=== PATIENT | female | born 1955 | race Caucasian/White ===

== ENCOUNTER → 2019-01-04 | Day surgery (SDC) | payer MEDICARE ==
[2019-01-01 14:19] LABS: BASOPHILS # (AUTO) 0.1 (0.0-0.1); BASOPHILS % 0.7 % (0.0-1.0); EOSINOPHILS # (AUTO) 0.3 (0.0-0.4); EOSINOPHILS % 3.6 % (0.0-6.0); HEMATOCRIT 40.4 % (34.2-44.1); HEMOGLOBIN 12.4 g/dL (12.0-16.0); LYMPHOCYTES # (AUTO) 2.6 (1.0-3.2); LYMPHOCYTES % 30.1 % (18.0-39.1); MEAN CORPUSCULAR HEMOGLOBIN 28.3 pg (28-32); MEAN CORPUSCULAR HGB CONC 30.7 g/dL (31-35); MEAN CORPUSCULAR VOLUME 92.2 fL (81-99); MONOCYTES # (AUTO) 0.9 (0.2-0.8); NEUTROPHILS # (AUTO) 4.7 (2.1-6.9); NEUTROPHILS % 55.3 % (38.7-80.0); PLATELET COUNT 211 x10e3/uL (140-360); RED BLOOD COUNT 4.38 x10e6/uL (3.6-5.1); RED CELL DISTRIBUTION WIDTH 12.8 % (11.7-14.4)
[~2019-01-04] MED LIST: ATORVASTATIN CA10 MG PO; BREO; CYCLOBENZAPRINE5 MG PO; CYMBALTA30 MG PO; ESTRADIOL1 MG PO; FENTANYL CITRATE/PF 100MCG/2 ML INJ ONE; LIDOCAINE HCL 2% LOCAL INJ 5 ML SDV VIAL INJ ONE; LUNESTA3 MG PO; METOPROLOL SUCC25 MG PO; MIDAZOLAM HCL 2 MG/2 ML VIAL ONE; PLAQUENIL200 MG PO; PROPOFOL IV EMULSION 10 MG/ML 50 ML VIAL ONE; ULTRACET TABLE1 EACH PO; VENTOLIN HFA18 GM INH
--- OUTSIDE RECORDS SUMMARY | 2019-01-04 06:53 | XMS REPORT | Clinical Summary ---
Author [facility] Address Unknown Phone Unavailable Care Team Providers Care Dietary Aide Name Role Phone Rosemary Patterson MD PCP Allergies Not on File Medications Not on file Active Problems Not on file Encounters Care Team Description Date Type Specialty Dotty Alfonso DO Episode of transient neurologic symptoms 07/12/2018 Hospital Encounter Dotty Alfonso DO Episode of transient neurologic symptoms (Primary Dx) 06/29/2018 Outside Orders Central Scheduling after 01/03/2018 Social History Date Tobacco Use Types Packs/Day Years Used Never Assessed Sex Assigned at Date Recorded Not on file Industry Job Start Date Occupation Not on file Not on file Not on file Travel End Travel History Travel Start No recent travel history available. Last Filed Vital Signs Not on file Plan of Treatment Not on file Procedures Comments Procedure Name Priority Date/Time Associated Diagnosis EEG AWAKE AND DROWSY Routine 07/12/2018 Episode of transient 2:39 PM CDT neurologic symptoms after 01/03/2018 Results * EEG Awake & Drowsy (07/12/2018 2:39 PM CDT) Narrative Performed At Neurophysiology Electroencephalogram Report GE RIS DATE OF REPORT: 07/12/18 Date(s) of Study: 07/12/2018 ACC: [id number] Start time: 1356 hrs Stop time: 1425 hrs ICD-10: R40.4 Transient Alteration of Awareness CPT Code: 57600 EEG: awake and drowsy <40 min HISTORY: 62 year old female referred for EEG due to reports of transient alteration of awareness and memory loss. She has a history significant for SLE. MEDICATIONS THAT COULD AFFECT EEG: Lunesta, Flexoril TECHNICAL SUMMARY: This is a digital video EEG recorded with 32 input channels reviewed with bipolar and referential montages using the modified combinatorial system nomenclature. Descriptors used for the background, any periodic patterns, and any sporadic discharges per ACNS 2012 Standardized ICU EEG Nomenclature. DESCRIPTION OF RECORD: BACKGROUND: There was a symmetric, reactive to eye opening, and well regulated posterior dominant rhythm of 11 Hz.More anteriorly, low voltage frontocentral beta predominated.Drowsiness was characterized by alpha attenuation and increased frontocentral theta. HYPERVENTILATION: Hyperventilation was performed for 3 minutes with good effort.No change was seen with HV. PHOTIC STIMULATION: Photic stimulation was done from 3-18 Hz; no photic driving was seen; photoparoxysmal responses were absent. EVENTS: None ELECTROCARDIOGRAM: A single lead EKG showed normal rate, rhythm, and appearance. IMPRESSION: Normal awake and drowsy EEG CLINICAL COMMENT: A routine EEG without epileptiform abnormalities does not preclude a clinical diagnosis of epilepsy; should clinical concern remain additional studies can be considered. Jessie Lopez MD Epilepsy Fellow [facility] Neurophysiology Service Yamileth Farias M.D., FACYOEL, FAAN, ELIZABETH Professor of Neurology, [facility] [employer] Director, [facility] Epilepsy Center Head, [facility] Neurophysiology Lab Procedure Note Interface, External Ris In - 07/12/2018 5:03 PM CDT Neurophysiology Electroencephalogram Report DATE OF REPORT: 07/12/18 Date(s) of Study: 07/12/2018 ACC: [id number] Start time: 1356 hrs Stop time: 1425 hrs ICD-10: R40.4 Transient Alteration of Awareness CPT Code: 93675 EEG: awake and drowsy <40 min HISTORY: 62 year old female referred for EEG due to reports of transient alteration of awareness and memory loss. She has a history significant for SLE. MEDICATIONS THAT COULD AFFECT EEG: Lunesta, Flexoril TECHNICAL SUMMARY: This is a digital video EEG recorded with 32 input channels reviewed with bipolar and referential montages using the modified combinatorial system nomenclature. Descriptors used for the background, any periodic patterns, and any sporadic discharges per ACNS 2012 Standardized ICU EEG Nomenclature. DESCRIPTION OF RECORD: BACKGROUND: There was a symmetric, reactive to eye opening, and well regulated posterior dominant rhythm of 11 Hz. More anteriorly, low voltage frontocentral beta predominated. Drowsiness was characterized by alpha attenuation and increased frontocentral theta. HYPERVENTILATION: Hyperventilation was performed for 3 minutes with good effort. No change was seen with HV. PHOTIC STIMULATION: Photic stimulation was done from 3-18 Hz; no photic driving was seen; photoparoxysmal responses were absent. EVENTS: None ELECTROCARDIOGRAM: A single lead EKG showed normal rate, rhythm, and appearance. IMPRESSION: Normal awake and drowsy EEG CLINICAL COMMENT: A routine EEG without epileptiform abnormalities does not preclude a clinical diagnosis of epilepsy; should clinical concern remain additional studies can be considered. Jessie Lopez MD Epilepsy Fellow [facility] Neurophysiology Service Yamileth Farias M.D., FACYOEL, FAAN, ELIZABETH Professor of Neurology, [facility] Director, [facility] Epilepsy Center Head, [facility] Neurophysiology Lab Performing Organization Address City/State/Zipcode Phone Number GE RIS after 01/03/2018 Insurance Payer Benefit Subscriber ID Type Phone Address Plan / Group [employer]KKI xxxxxxxxxxx SUPERIOR
--- OUTSIDE RECORDS SUMMARY | 2019-01-04 06:53 | XMS REPORT ---
Author Author [facility] Address Unknown Phone Unavailable Care Team Providers Care Playground Monitor Name Role Phone Unavailable Unavailable Payers Payer Name Policy Type Policy Number Effective Date Expiration Date Problems This patient has no known problems. Allergies, Adverse Reactions, Alerts This patient has no known allergies or adverse reactions. Medications This patient has no known medications. Results Test Description Test Time Test Comments Text Results Atomic Results Result Comments EEG AWAKE AND DROWSY 2018-07-12 17:03:00 Reason for exam:->R29.90 Neurophysiology Electroencephalogram Report DATE OF REPORT: 07/12/18Date(s) of Study: 07/12/2018ACC: [id number]: [id number] time: 1356 hrsStop time: 1425 hrsICD-10: R40.4 Transient Alteration of AwarenessCPT Code: 18108 EEG: awake and drowsy <40 min HISTORY: [...] and appearance. IMPRESSION: Normal awake and drowsy EEGCLINICAL COMMENT: A routine EEG without epileptiform abnormalities does not preclude a clinical diagnosis of epilepsy; should clinical concern remain additional studies can be considered. Jessie Lopez M[facility]pilepsy [facility] Neuro[facility] Service Yamileth Farias M.D., FACNS, FAAN, FAESProfessor of Neurology, [facility] College of MedicineDirector, [facility] Center[facility] Neurophysiology Lab
--- OUTSIDE RECORDS SUMMARY | 2019-01-04 06:53 | XMS REPORT | Encounter Summary ---
Author Organization Unknown Address [address] [place] [address] Phone [phone] Care Team Providers Care Tiltrotor Crew Chief Name Role Phone Dr. Rosemary Patterson 3 [phone] Duncan Urbano MD 2 [phone] Alanna Temple MD 126 [phone] Reason for Visit AWV Annual Wellness Visit Female (VFP); cough Instructions 1. Adult health examination 2. Lupus erythematosus rheumatology referral - please schedule & contact our patient . thank you 3. Chronic obstructive lung disease 4. Hormone replacement therapy gynecology referral - please schedule & contact our patient. thank you. 5. Hyperlipidemia high cholesterol: care instructions 6. Advance directive discussed with patient advance care planning: care instructions 7. Depression screening 8. Immunization 9. Body mass index 30+ - obesity body mass index: care instructions 10. Screening mammography mammogram: about this test MAMMO, screening, digital, bilateral 11. Screening for malignant neoplasm of colon learning about healthy weight colonoscopy referral 12. Depressive disorder 13. Depression screening positive learning about depression learning about mood disorders 14. Essential hypertension 15. History of polyp of colon gastroenterology referral 16. Intermittent palpitations 17. Solitary nodule of lung pulmonary disease referral 18. Thyroid nodule 19. Atherosclerosis of aorta 20. Cough azithromycin 250 mg tablet Discussion Note: None recorded. Plan of Care Patient Instructions Screening Recommendations 1. Vaccines Pneumococcal: discussed today and information sent with patient in their Annual Wellness health folder Influenza: Next Fall Shingles: discussed today and information sent with patient in their Annual Wellness health folder Tetanus: discussed today and information sent with patient in their Annual Wellness health folder 2. Mammography Screening: Ordered 3. Colorectal cancer Screening Colonoscopy: Ordered Fecal Occult Blood: discussed today and information sent with patient in their Annual Wellness health folder 4. Bone Mass Measurement: discussed today 5. Pap test / Pelvic Exam Screening: discussed today 6. Eye Exam Screening: discussed today 7. Cholesterol Screening: discussed today 8. Diabetes Screening: discussed today It was good to see you in the office today for your Medicare Annual Wellness Visit. You have been provided some information on healthy nutrition, including a diet rich in fruits and vegetables, minimizing simple carbohydrates, salt, and saturated fats. I want to encourage regular cardiovascular exercise such as walking at least 30 minutes daily, 5 times per week. Please remember to schedule any preventive health measures that we talked about today. You have also been provided education on fall prevention and community- based lifestyle interventions to help reduce health risks and promote healthy living in your Annual Wellness folder. Reminders Provider Appointments Return to Office on or around 05/29/2019 Rosemary Patterson MD Lab None recorded. Referral Colonoscopy Referral 11/30/2018 Thony Forbes MD Rheumatology Referral 11/30/2018 Lindsay Agosto MD Gynecology Referral 11/30/2018 Alanna Temple MD Gastroenterology Referral 11/30/2018 Thony Forbes MD Pulmonary Disease Referral 11/30/2018 Elliott Zeng MD Procedures None recorded. Surgeries None recorded. Imaging MAMMO, Screening, Digital, Bilateral 11/30/2018 [facility] Imaging Medications Name Start Date atorvastatin 10 mg tablet Take 1 tablet every day by oral route for 90 days. azithromycin 250 mg tablet TAKE 2 TABLETS (500 MG) BY ORAL ROUTE ONCE DAILY FOR 1 DAY THEN 1 TABLET (250 MG) BY ORAL ROUTE ONCE DAILY FOR 4 DAYS Breo Ellipta 100 mcg-25 mcg/dose powder for inhalation Inhale 1 puff every day by inhalation route. cyclobenzaprine 5 mg tablet Take 1 tablet twice a day by oral route as needed. duloxetine 60 mg capsule,delayed release Take 1 capsule every day by oral route. estradiol 1 mg tablet Take 1 tablet every day by oral route. eszopiclone 3 mg tablet Take 1 tablet every day by oral route. hydrocodone 5 mg-acetaminophen 325 mg tablet Take 1 tablet every day by oral route as needed for 30 days. hydroxychloroquine 200 mg tablet Take 1 tablet every day by oral route. metoprolol tartrate 25 mg tablet Take 1 tablet twice a day by oral route. tramadol 37.5 mg-acetaminophen 325 mg tablet Take 2 tablets every 4 hours by oral route. Ventolin HFA 90 mcg/actuation aerosol inhaler Inhale 2 puffs 4 times a day by inhalation route as needed. Medications Administered None recorded. Vitals Height Weight BMI Blood Pressure 5 ft 1 in 202 lbs 38.2 kg/m2 146/90 mm[Hg] Lab Results None recorded. Allergies Code Code System Name Reaction Severity Status Onset NKDA Problems Name Status Onset Date Source Hyperlipidemia Active 12/12/2017 Depressive Disorder Active 12/12/2017 Insomnia Active 12/12/2017 Essential Hypertension Active 12/12/2017 Lupus Erythematosus Active 12/12/2017 Hormone Replacement Therapy Active 07/10/2018 Family History of Aneurysm of Blood Vessel of Brain Active 07/10/2018 Multiple Nodules of Lung Active 09/15/2018 Procedures Date Name Performed by 10/23/1965 Appendectomy Information not available 11/30/2018 MAMMO, Screening, Digital, Bilateral [facility] [address] [place] [address] (Work Place) Vaccine List Vaccine Type influenza, injectable, quadrivalent, preservative free 07/02/20180.5 mL Social History Smoking Status Former Smoker (10/26 PPD) Past Encounters 11/30/2018 Adult Health Examination; Lupus Erythematosus; Chronic Obstructive Lung Disease; Hormone Replacement Therapy; Hyperlipidemia; Advance Directive Discussed with Patient; Depression Screening; Immunization; Body Mass Index 30+ - Obesity; Screening Mammography; Screening for Malignant Neoplasm of Colon; Depressive Disorder; Depression Screening Positive; Essential Hypertension; History of Polyp of Colon; Intermittent Palpitations; Solitary Nodule of Lung; Thyroid Nodule; Atherosclerosis of Aorta; Cough Rosemary Patterson MD: [address] [place] [address], Ph. History of Present Illness Mini Cog Reported By: Patient Functional Ability: Personal/Social/ Draw a clock and write in the numbers in the correct place, and set the time to 10 minutes after 11 o'clock was completed correctly? Yes, 3 word recall: Your nurse or doctor will ask you to remember 3 words. In 5 minutes, they will ask you to repeat them. Patient recalled 3 words Note:63yo female presents for AWV. Last visit was TCM 08/21/18 after pneumonia. Since last visit, pt saw thierry Alvares on 10/30/18 for thyroid nodule. Had FNAx4 on 11/14/18 - thyroid cyst, no cancer. Called by Dr Chahal - biopsy was negative. Fluid filled cyst.<div>Was noted to have right thyroid nodule 2.7cm on CT chest at [facility] in Jul 2018.
<div>Since last visit, was seen by Dr Zeng, pulm. Was noted to have a solitary pulm nodule in RLL 5mm on CT chest in Jul 2018 at [facility]. Consult note from 10/01/18 reviewed. Pulm nodule resolved on f/u CT chest. Repeat CT chest in one year. Next appt with Dr Zeng in 12/2018. Has new Breo inhaler qd and ventolin prn.
<div>Past hx of HTN, hyperlipidemia, depression, insomnia, and lupus. Followed by rheumatology for SLE by Dr. Josie Agosto. Needs referral update with HMO. Next visit on 12/31/18.</div><div><span style="font-size: 14px;">Has been evaluated by < /span>Alanna<span style="font-size: 14px;">, cardiology in past for rapid heart rate.</span></div><div><div><div>Needs referrals today for both pulm & rheum & GI, Dr Forbes.</div><div>Last colonoscopy about 5yrs ago by Dr Forbes, had colon polyps.</div><div>Here today with cough productive of frothy, yellow phlegm for past 2 days. Unsure if fever, but chills. Some runny nose.</div>
Previously:
<div>Last fall, pt had EEG & MRA brain by [facility] Neurology, Dr. Alfonso for evaluation of seizure vs, memory lapse. Both tests were normal per pt. Had neuropsych testing at [facility] on Aug 02, [address] Sabillon.</div><div>
</div><div><div><span style="font-size: 14px;">Pt has recently restarted her estradiol </span>1mg<span style="font-size: 14px;"> qd, pt was trying to taper down, but feels much better on it. Aware of risk of DVT. Had </span>NEVA<span style="font-size: 14px;">/BSO age 39 for fibroids. Last mammo in early 2018 with new gyne, Dr. Alanna Temple.</span><span style="font-size: 14px;"> </span></div ><div><div><div>
</div><div><div>Dx'd with SLE about 20yrs ago, but it has worsened in past 2-[address] Agosto, rheum every three months with labwork. No longer on MTX.</div><div>
</div><div><span style="font-size: 14px;">Quit smoking </span>2yrs<span style="font-size: 14px;"> ago using Nicorette gum. Smoked </span>1ppd<span style="font-size: 14px;"> for </span> 50yrs<span style="font-size: 14px;"> with some tapering & quit attempts. Finally quit for granddaughter. </span>
</div><div>NKDA.</div><div><div>
< /div><div>PMHx:</div><div>SLE - as above</div><div>GERD - onset when starting imuran, minimally changed since starting methotrexate, following lengthy steroid taper <div>Insomnia - previously with severe fatigue when insurance required [facility], but back to esta x 2 days with gradual improvement</div><div>HRT- restarted estradiol, followed by [facility]</div></div></div ><div>Depression - severe depression dx'd about 20yrs ago. Saw psychiatrist for stress management back then. Crying at that time. Started on sertraline 50mg qd, then bid in 2014 with dtr murder. Now on Cymbalta 60mg qd for depression. Taking T#3 and Lunesta on occasion to help with sleep. Hydrocodone in past from rheum.</div></div></div></div></div></div></div></div></div> Review of Systems:ROS as noted in the HPI Review of Systems Comprehensive General Adult ROS Reported By: Patient Constitutional: Constitutional: no fever Eyes: Eyes: no vision change ENMT: Nose: nose problems, sinus problems Cardiovascular: Cardiovascular: no chest pain Respiratory: Respiratory: no coughing up blood, cough, wheezing, shortness of breath Gastrointestinal: Gastrointestinal: no abdominal pain Musculoskeletal: Musculoskeletal: muscle weakness, arthralgias/joint pain Neurologic: Neurologic: no loss of consciousness, no headaches; memory loss Psychiatric: Psych: feeling safe in a relationship, no alcohol abuse, no anxiety, no hallucinations, no suicidal thoughts, depression, sleep disturbances, restless sleep Physical Exam General Adult Exam (Female), Upper Respiratory Infection Exam Comprehensive Reported By: Patient Constitutional: General Appearance: healthy-appearing, well-nourished, well-developed, in no acute distress. Ambulation: ambulating normally Psychiatric: Mental Status: active and alert, normal mood, normal affect Eyes: Lids and Conjunctivae: non-injected. Pupils: PERRLA, PERRLA. EOM: EOMI. Sclerae: non-icteric ENMT: Hearing: no hearing loss. Nose: no lesions on external nose, no sinus tenderness, normal, pink and moist Neck: Neck: symmetrical. Thyroid: non-tender, no nodules Lungs: Respiratory effort: no dyspnea. Auscultation: breath sounds normal, good air movement, no wheezing, no rales/crackles Cardiovascular: Heart Auscultation: RRR, normal S1, normal S2, no murmurs. Neck vessels: no carotid bruits. Auscultation regular rate and rhythm. Observation/Palpation of peripheral vascular system carotid pulse normal Abdomen: Bowel Sounds: normal. Inspection and Palpation: soft Musculoskeletal:: Joints, Bones, and Muscles: normal movement of all extremities. Extremities: no edema Neurologic: Gait and Station: normal gait. Cranial Nerves: grossly intact. Sensation: grossly intact Skin: Inspection and palpation: no rash. Inspection and palpation: no rash Ears: Right External auditory canal normal appearance. Left External auditory canal normal appearance. Right Tympanic membrane pearly lewis, landmarks clear. Left Tympanic membrane: pearly lewis, landmarks clear Oral Cavity/Mouth: Oral Mucosa: normal, moist. Tonsils: erythema. Posterior pharynx: erythema Lymph Nodes: Cervical no palpable lymph node enlargement, no submandibular adenopathy, no posterior cervical adenopathy, no anterior cervical adenopathy
--- OUTSIDE RECORDS SUMMARY | 2019-01-04 06:53 | XMS REPORT | Encounter Summary ---
Author Organization Unknown Address [address] [place] [address] Phone [phone] Care Team Providers Care Inspector Balance Bridge Name Role Phone Dr. Rosemary Patterson 3 [phone] Duncan Urbano MD 2 [phone] Alanna Temple MD 126 [phone] Reason for Visit Right ear pain/problem; Right neck pain Instructions 1. Body mass index 30+ - obesity body mass index: care instructions learning about healthy weight 2. Acute otitis media Medrol (Jake) 4 mg tablets in a dose pack Augmentin 875 mg-125 mg tablet 3. Neck pain 4. Immunization refused Adacel (Tdap Adolesn/Adult)(PF)2 Lf-(2.5-5-3-5)-5 Lf/0.5 mL IM syringe Discussion Note: None recorded. Plan of Care Reminders Provider Appointments None recorded. Lab None recorded. Referral None recorded. Procedures None recorded. Surgeries None recorded. Imaging None recorded. Medications Name Start Date atorvastatin 10 mg tablet Take 1 tablet every day by oral route for 90 days. Augmentin 875 mg-125 mg tablet Take 1 tablet every 12 hours by oral route. Breo Ellipta 100 mcg-25 mcg/dose powder for [...] 1 tablet every day by oral route. Medrol (Jake) 4 mg tablets in a dose pack as directed metoprolol tartrate 25 mg tablet Take 1 tablet twice a day by oral route. tramadol 37.5 mg-acetaminophen 325 mg tablet Take 2 tablets every 4 hours by oral route. Ventolin HFA 90 mcg/actuation aerosol inhaler Inhale 2 puffs 4 times a day by inhalation route as needed. Medications Administered None recorded. Vitals Height Weight BMI Blood Pressure 5 ft 1 in 207 lbs 39.1 kg/m2 126/83 mm[Hg] Lab Results None recorded. Allergies Code [...] not available 11/30/2018 MAMMO, Screening, Digital, Bilateral [facility] [address] [place] [address] (Work Place) Vaccine List Vaccine Type influenza, injectable, quadrivalent, preservative free 07/02/20180.5 mL Tdap 0.5 mL Social History Smoking Status Former Smoker (10/26 PPD) Past Encounters 12/20/2018 Body Mass Index 30+ - Obesity; Acute Otitis Media; Neck Pain; Immunization Refused Vega Carter MD: [address] [place] [phone], Ph. 11/30/2018 Adult Health Examination; Lupus Erythematosus; Chronic Obstructive Lung Disease; Hormone Replacement Therapy; Hyperlipidemia; Advance Directive Discussed with Patient; Depression Screening; Immunization; Body Mass Index 30+ - Obesity; Screening Mammography; Screening for Malignant Neoplasm of Colon; Depressive Disorder; Depression Screening Positive; Essential Hypertension; History of Polyp of Colon; Intermittent Palpitations; Solitary Nodule of Lung; Thyroid Nodule; Atherosclerosis of Aorta; Cough Rosemary Patterson MD: [address] [place] [phone], Ph. History of Present Illness Neck Mass/Pain Reported By: Patient Note:1 week R earache /neck pain Review of Systems:ROS as noted in the HPI Review of Systems None recorded. Physical Exam Upper Respiratory Infection Exam Comprehensive Reported By: Patient Constitutional: General Appearance in no acute distress Skin: Inspection and palpation: no rash, no lesions, no ulcer, good turgor, no jaundice Head: Sinuses no tenderness Eyes: Pupils EOM intact, PERRLA, conjunctiva non-injected Ears: Right External auditory canal no obstruction, no discharge. Left External auditory canal normal appearance, no obstruction, no erythema, no discharge. Right Tympanic membrane mobile with pneumatic otoscopy, landmarks clear, erythematous. Left Tympanic membrane: mobile with pneumatic otoscopy, landmarks clear Nose: Nasal Skin: no lesion, no lacerations. Nasal Mucosa normal, pink and moist Oral Cavity/Mouth: Lips, teeth, gums normal lips, normal gums. Oral Mucosa: normal, moist, no lesions. Palate: normal hard palate, normal soft palate. Tongue: normal tongue, no lesion, no edema. Tonsils: normal tonsils, no lesions. Posterior pharynx: normal Lymph Nodes: Cervical no palpable lymph node enlargement, no submandibular adenopathy, no posterior cervical adenopathy, no anterior cervical adenopathy, no supraclavicular adenopathy Neck: Neck symmetrical, trachea midline Lungs: Respiratory effort unlabored. Auscultation breath sounds normal, no wheezing, no rales / crackles, no rhonchi Cardiovascular System: Auscultation regular rate and rhythm, no murmur, no rubs, no gallops. Observation/Palpation of peripheral vascular system no varicosities, carotid pulse normal, no edema
[2019-01-04 11:55] VITALS: BP 131/88
--- NOTE | 2019-01-04 18:31 | Operative Report ---
DATE OF PROCEDURE: 01/04/2019 SURGEON: Thony Forbes MD PROCEDURES: Esophagogastroduodenoscopy with brushings and biopsies and esophageal dilatation and colonoscopy with polypectomy. INDICATIONS FOR EGD: Dysphagia. INDICATION FOR COLONOSCOPY: Surveillance colonoscopy, personal history of colon polyps. MEDICATION: The patient was done under MAC, please see anesthesiologist's note. PROCEDURE IN DETAIL: With the patient in left lateral decubitus position, flexible fiberoptic Olympus gastroscope was introduced into the esophagus under direct visualization without any difficulty. There were some scattered whitish plaques noted in the esophagus and those were brushed and sent to stain for Heather. A mild stricture was noted at the GE junction that was dilated to size 52-Ma[place] Meraz. The scope was then advanced with ease into the stomach traversing a small sliding hiatal hernia. Mucosa overlying the antrum and the body revealed some patchy erythema and low grade to moderate edema and biopsies were obtained and sent to stain for H pylori. Several hyperplastic-appearing polyps were noted in the body of the stomach and somewhat partially excised with the cold biopsy forceps. The pylorus was of normal contour and shape, was intubated with ease and the scope was advanced all the way to the second portion of the duodenum. The mucosa overlying the proximal second portion and the duodenal bulb grossly appeared to be within normal limits. Biopsies were obtained and sent to rule out sprue. The scope was then withdrawn back into the stomach and retroflexed and mucosa overlying the fundus and cardia appeared to be within normal limits. The scope was then straightened out. The stomach was decompressed. The scope was subsequently withdrawn. The patient tolerated the procedure well. IMPRESSION: 1. Rule out Heather esophagitis. 2. Esophageal stricture, dilated to size 52-Ma[place] Meraz. 3. Small sliding hiatal hernia. 4. Gastritis, biopsied. Biopsies sent to stain for Helicobacter pylori. 5. Gastric polyps, hyperplastic appearing, body of stomach, some partially excised with cold biopsy forceps. 6. Rule out sprue. PLAN: Follow up histology. Initiate Protonix 40 mg one p.o. q.a.m. a.c. PROCEDURE IN DETAIL: The patient was then turned around and after adequate lubrication of the anal canal, flexible fiberoptic Olympus colonoscope was inserted into the rectum with ease and advanced all the way to the cecum. The scope was then withdrawn slowly and mucosa overlying the cecum appeared to be within normal limits. One polyp was snared from the distal ascending colon. The transverse appeared to be within normal limits. Diverticular disease was noted to involve the left colon. One polyp was snared and one polyp was hot biopsied from the sigmoid colon. The rectum appeared to be within normal limits. The scope was then retroflexed into the distal rectum and moderate-sized internal hemorrhoids were noted, none of which was actively bleeding. The scope was then straightened out and was subsequently withdrawn. The patient tolerated the procedure well. IMPRESSION: 1. Ascending colon polyp, snared. 2. Diverticulosis. 3. Sigmoid colon polyps x2, one snared, one hot biopsied. 4. Internal hemorrhoids, none actively bleeding. PLAN: Follow up histology. Initiate high-fiber, low-fat diet. Initiate high-fiber supplement. The patient might benefit from a followup colonoscopy in 5 years. Thony Forbes MD [facility] [place] /[id number] cc: Rosemary Patterson MD
== END | disposition home or self-care (01) ==
LOC: OR 06:49
PROVIDERS: ATTEND Internal Medicine Gastroenterology
DX: K22.2 Esophageal obstruction (principal); D12.4 Benign neoplasm of descending colon; D12.5 Benign neoplasm of sigmoid colon; K31.7 Polyp of stomach and duodenum; K29.70 Gastritis, unspecified, without bleeding; K29.80 Duodenitis without bleeding; K59.09 Other constipation; K21.9 Gastro-esophageal reflux disease without esophagitis; K44.9 Diaphragmatic hernia without obstruction or gangrene; K57.30 Diverticulosis of large intestine without perforation or abscess without bleeding; K64.8 Other hemorrhoids; M32.9 Systemic lupus erythematosus, unspecified; J45.909 Unspecified asthma, uncomplicated; I10 Essential (primary) hypertension; Z88.6 Allergy status to analgesic agent; Z01.810 Encounter for preprocedural cardiovascular examination; Z01.812 Encounter for preprocedural laboratory examination; Z68.37 Body mass index [BMI] 37.0-37.9, adult
CPT/HCPCS: 36415; 43239; 43450; 45384; 45385; 85025; 87106; 87205; 88305; 88312; 93005; J2001; J2250; J2704